=== PATIENT | female | born 1985 | race Caucasian/White ===

== ENCOUNTER 2024-02-04 09:40 | Emergency (ER) | payer BC, SELFPAY ==
[2024-02-04 09:45] VITALS: BP 104/71
--- NOTE | 2024-02-04 11:05 | ED.GENMED ---
History of Present Illness
General
Chief Complaint: Abdominal Symptoms
Source: patient
Exam Limitations: none
Time Seen by Provider: 02/04/24 10:48
History of Present Illness
History of Present Illness:
38-year-old female presents with 2 to 3 days worth of nausea vomiting epigastric discomfort. This was preceded by a course of pneumonia which was also preceded by the flu. She had Tamiflu initially then found to have walking pneumonia and was
prescribed azithromycin. She denies any constant abdominal discomfort but does note upper abdominal pain prior to her vomiting. She denies any blood in the stool. No diarrhea. No fever currently. She is healthy otherwise and does not take any
medications regularly
Phy Exam
Physical Exam
Physical Exam:
General: Well-appearing female no acute respiratory distress
HEENT: Normocephalic atraumatic
Heart: Regular rate and rhythm no murmurs
Lungs: Clear no wheeze
Abdomen: Soft mildly tender in epigastric region no guarding rebound normal bowel sounds nondistended
Extremities: No cyanosis
Skin: Warm no rash
Course
Orders/Labs/Results
Orders:
Orders
02/04/24 11:03
0.9% Sodium Chloride 1000 ml [Nss] 1,000 ml IV BOLUS
Famotidine [Pepcid] 20 mg IV NOW STA
Ondansetron HCl [Zofran] 4 mg PO NOW STA
Test Result ONCE
CR Chest - 2 Views Urgent
Comment:
Reason For Exam: cough
02/04/24 11:30
Complete Blood Count/With Diff Urgent
Comprehensive Metabolic Panel Urgent
HCG, Serum Qualitative Screen Urgent
Lipase Urgent
02/04/24 11:36
Ondansetron Injectable [Zofran] 4 mg IV NOW STA
02/04/24 13:48
Vital Signs- Treatment ONCE
Frequency: Once
Abnormal Lab Results
02/04/24
11:30
WBC 12.1 H 10^3/uL
(4.8-10.8)
RBC 3.80 L 10^6/uL
(4.20-5.40)
Hgb 11.3 L g/dL
(12.0-16.0)
Hct 34.2 L %
(37.0-47.0)
Abs Immat Gran (auto) 0.3 H 10^3/uL
(0-0.05)
Absolute Neuts (auto) 9.2 H 10^3/uL
(1.4-6.5)
Absolute Monos (auto) 0.9 H 10^3/uL
(0.1-0.6)
Immature Gran % 2.2 H %
(0-0.5)
Neutrophils % 76.4 H %
(42.2-75.2)
Lymphocytes % 12.8 L %
(20.5-51.1)
Chloride 97 L mmol/L
(98-107)
ALT 43 H U/L
(0-35)
Alkaline Phosphatase 28 L U/L
(38-126)
02/04/24 11:30
02/04/24 11:30
Vital Signs
Initial and Last Documented VS:
Initial Vital Signs
Temp Pulse Resp BP Pulse Ox
98.0 F 120 18 104/71 96
02/04/24 09:45 02/04/24 09:45 02/04/24 09:45 02/04/24 09:45 02/04/24 09:45
Last Documented Vital Signs
Temp Pulse Resp BP Pulse Ox
98.0 F 90 16 104/62 98
02/04/24 09:45 02/04/24 13:55 02/04/24 13:55 02/04/24 14:00 02/04/24 13:55
MDM/Problems Addressed
Differential Diagnosis Includes:
Patient with vomiting. Abdomen exam fairly benign. Will check labs, hydrate and treat with zofran.
was diagnosed recently with Giardia however patient does not have any diarrhea.
*Critical Care Note
Total Time (30-74mins, 75-104mins- exclusive of procedures): Not Applicable
Update Note
Update Note:
X-ray does demonstrate right upper lobe pneumonia. Patient is not hypoxic. She is not tachycardic after fluids. Her nausea is improved she is not tolerating oral fluids. Overall no respiratory distress and is stable. Admission not indicated at
this point will discharge home with Zofran and cefdinir. She just completed a 5-day course of Zithromax. Return precautions were given
ED Attending Note
-
Portions of this chart may have been created with voice recognition software.� Occasional wrong word or��sound alike� substitutions may have occurred due to the inherent limitations of voice recognition software.
Discharge Plan
Departure
Patient Disposition: Home (Routine Discharge)
Date of Disposition: 02/04/24
Time of Disposition: 14:42
Patient with high blood pressure during this ER visit?: No
Discharge Problem:
Pneumonia
Instructions: Dehydration, Adult (DC), Pneumonia
Prescriptions:
New
ondansetron 4 mg tablet,disintegrating
4 mg PO TID PRN (Reason: nausea and vomiting) Qty: 10 0RF
cefdinir 300 mg capsule
300 mg PO BID Qty: 14 0RF
Referrals:
UNKNOWN - PT DOES,NOT KNOW [Family Provider] -
Activity Restrictions/Additional Instructions:
Drink plenty fluids. Use Zofran if needed for nausea. Take antibiotic as directed. Return if worse otherwise follow-up with family doctor
Interventions
Interventions:
*Risk Screen - Suicide Last Done: 02/04/24 09:48
*General Assessment Last Done: 02/04/24 09:48
*Neglect/Abuse Screening Last Done: 02/04/24 09:48
*ED COVID-19 Vaccine History Last Done: 02/04/24 11:31
LQ-Nxpegp-Qluvkddnls Assessment Last Done: 02/04/24 11:51
Discharge Date and Time
Print Language: ARMENIAN
[2024-02-04 11:28] VITALS: BP 105/64
[2024-02-04] MEDS: NSS 1000 IV (11:35)
[2024-02-04] MEDS: PEPCID 20 MG IV (11:38)
[2024-02-04] MEDS: ZOFRAN 4 MG IV (11:38)
[2024-02-04 11:54] LABS: % Basophils 0.5 % (0-2); % Eosinophils 0.5 % (0-6); % Immature Granulocytes 2.2 % (0-0.5); % Lymphocytes 12.8 % (20.5-51.1); % Monocytes 7.6 % (1.7-9.3); % Neutrophils 76.4 % (42.2-75.2); Absolute Basophils 0.1 10^3/uL (0-0.2); Absolute Eosinophils 0.1 10^3/uL (0-0.7); Absolute Immature Granulocytes 0.3 10^3/uL (0-0.05); Absolute Lymphocytes 1.6 10^3/uL (1.2-3.4); Absolute Monocytes 0.9 10^3/uL (0.1-0.6); Absolute Neutrophils 9.2 10^3/uL (1.4-6.5); Hematocrit 34.2 % (37.0-47.0); Hemoglobin 11.3 g/dL (12.0-16.0); Mean Corpuscular Hgb 29.7 pg (27.0-31.0); Mean Platelet Volume 9.4 fL (7.4-10.4); Nucleated Red Blood Cells % 0 %; Platelet Count 383 10^3/uL (130-400); Red Cell Dist. Width 12.8 % (11.5-14.5); White Blood Cell Count 12.1 10^3/uL (4.8-10.8)
[2024-02-04 12:00] VITALS: BP 106/67
[2024-02-04 12:05] LABS: ALT (SGPT) 43 U/L (0-35); AST (SGOT) 19 U/L (14-36); Albumin 3.8 g/dl (3.5-5.0); Alkaline Phosphatase 28 U/L (38-126); Blood Urea Nitrogen 17 mg/dl (7-17); Calcium 9.1 mg/dl (8.4-10.2); Carbon Dioxide 30 mmol/L (22-30); Chloride 97 mmol/L (98-107); Glucose 94 mg/dl (70-99); Lipase 66 U/L (23-300); Potassium 4.7 mmol/L (3.5-5.1); Sodium 137 mmol/L (135-145); Total Bilirubin 0.8 mg/dl (0.2-1.3); Total Protein 6.5 g/dl (6.3-8.2); eGFR > 60.00
[2024-02-04 12:09] LABS: HCG, Serum Qualitative Screen Negative
[2024-02-04 13:00] VITALS: BP 113/63
[2024-02-04 13:55] VITALS: BP 113/63
[2024-02-04 14:00] VITALS: BP 104/62
== END 2024-02-04 15:06 | disposition home or self-care (01) ==
LOC: EMR 09:40
PROVIDERS: Physician Assistant; EMERGENCY PHYSICIAN Emergency Medicine
DX: J18.9 Pneumonia, unspecified organism (principal); R11.2 Nausea with vomiting, unspecified; R10.13 Epigastric pain
CPT/HCPCS: 99284; 96374; 96375; 96361; 71046; 80053; 83690; 84703; 85025

== ENCOUNTER 2024-03-04 09:17 | Emergency (ER) | payer BC, SELFPAY ==
[2024-03-04 09:29] VITALS: BP 134/68
--- NOTE | 2024-03-04 09:39 | ED.GENMED ---
History of Present Illness
General
Chief Complaint: Pneumonia Symptoms
Source: patient
Exam Limitations: none
Time Seen by Provider: 03/04/24 09:37
Nursing documentation reviewed up to this point in time: agreed with
History of Present Illness
History of Present Illness:
Patient is a 38-year-old female who presents to the ER complaining of intermittent nausea and vomiting since the end of January. Patient was seen here in February 03 diagnosed with pneumonia. She reports she has had intermittent nausea vomiting
since. In between the nausea vomiting she has a lot of reflux. It is worse with pizza and spicy foods. She denies any associated diarrhea. She has been taking Pepto-Bismol and Tums. She recent was constipated but moved her bowels. She denies
any upper respiratory symptoms including cough fever chills. She does feel some epigastric discomfort. She does not have a family doctor however does have a GI specialist that she can see as outpt .
Review of Systems
Review of Systems
Allergies reviewed?: Yes
All Other Systems: ROS reviewed and negative except as documented in HPI and ROS
Constitutional: Reports no symptoms; Denies fever
Respiratory: Reports no symptoms
Cardiac: Reports no symptoms
ABD/GI: Reports abdominal pain (upper abd pain with n/v ; 'heartburn' ) and vomiting
: Reports no symptoms
Musculoskeletal: Reports no symptoms
Skin: Reports no symptoms
Neurological: Reports no symptoms
Psychiatric: Reports no symptoms
Phy Exam
General Physical Exam
General Presentation: no apparent distress
General age: appears stated age
General Skin: warm and dry
General Habitus: normal
General Mental: alert
General Hydration: appears well hydrated
Cardiovascular Exam
Cardiovascular Exam: regular rate/rhythm, no murmur and normal peripheral pulses
Pulmonary Exam
Pulmonary Exam: lungs clear and no respiratory distress
Gastrointestinal Exam
Gastrointestinal Exam: normal bowel sounds, non tender and soft
Neurological Exam
Neurological Exam: alert and oriented x3
Musculoskeletal Exam
Musculoskeletal Exam: full ROM
Skin Exam
Skin Exam: normal color and warm/dry
Psychiatric Exam
Psychiatric Exam: normal mood/affect
Course
Orders/Labs/Results
Orders:
Orders
03/04/24 09:32
Electrocardiogram (*1) Urgent
Reason for Study: Chest Pain
EKG- Treatment ONCE
03/04/24 09:48
Famotidine [Pepcid] 20 mg IV NOW STA
Ondansetron Injectable [Zofran] 4 mg IV NOW STA
03/04/24 09:49
Test Result ONCE
03/04/24 10:01
Complete Blood Count/With Diff Urgent
Comprehensive Metabolic Panel Urgent
HCG, Serum Qualitative Screen Urgent
Lipase Urgent
03/04/24 10:45
Add On- LAB Urgent
Tests Added?: serum qualitative HCG
Abnormal Lab Results
03/04/24
10:01
RBC 4.10 L 10^6/uL
(4.20-5.40)
Hgb 11.3 L g/dL
(12.0-16.0)
Hct 35.5 L %
(37.0-47.0)
MCHC 31.8 L g/dL
(33.0-37.0)
MPV 11.2 H fL
(7.4-10.4)
Absolute Monos (auto) 0.8 H 10^3/uL
(0.1-0.6)
Monocytes % 11.6 H %
(1.7-9.3)
Glucose 102 H mg/dl
(70-99)
Calcium 11.6 H mg/dl
(8.4-10.2)
Alkaline Phosphatase 23 L U/L
(38-126)
03/04/24 10:01
03/04/24 10:01
Vital Signs
Initial and Last Documented VS:
Initial Vital Signs
Temp Pulse Resp BP Pulse Ox
98.0 F 94 16 134/68 100
03/04/24 09:29 03/04/24 09:29 03/04/24 09:29 03/04/24 09:29 03/04/24 09:29
Last Documented Vital Signs
Temp Pulse Resp BP Pulse Ox
98.0 F 76 14 98/66 97
03/04/24 09:29 03/04/24 12:15 03/04/24 12:15 03/04/24 12:00 03/04/24 12:15
MDM/Problems Addressed
MDM/Problems Addressed:
Symptoms are consistent with GERD, reflux. Patient no acute distress complains of heartburn and epigastric discomfort with spicy foods. Has had nausea vomiting associate with this. Patient no acute distress denies any fevers afebrile normal
white count stable hemoglobin, normal chemistries normal LFTs.
Patient was given fluids here along with Pepcid and Zofran IV feeling better stable for discharge home with outpatient follow-up with GI. Patient does have a GI specialist so she is always telemedicine. Will follow-up with her GI specialist given
PPI for discharge
*Critical Care Note
Total Time (30-74mins, 75-104mins- exclusive of procedures): Not Applicable
ED Attending Note
-
Portions of this chart may have been created with voice recognition software.� Occasional wrong word or��sound alike� substitutions may have occurred due to the inherent limitations of voice recognition software.
Discharge Plan
Departure
Patient Disposition: Home (Routine Discharge)
Date of Disposition: 03/04/24
Time of Disposition: 12:12
Patient with high blood pressure during this ER visit?: Yes
Condition: Fair
Covid-19: Not Applicable
Discharge Problem:
gerd
Instructions: Acid reflux and GERD in adults, BLOOD PRESSURE
Prescriptions:
New
pantoprazole [Protonix] 40 mg tablet,delayed release (DR/EC)
40 mg PO DAILY Qty: 14 0RF
ondansetron 4 mg tablet,disintegrating
4 mg PO Q8H PRN (Reason: nausea and vomiting) Qty: 10 0RF
No Action
ondansetron 4 mg tablet,disintegrating
4 mg PO TID PRN (Reason: nausea and vomiting) Qty: 10 0RF
cefdinir 300 mg capsule
300 mg PO BID Qty: 14 0RF
Referrals:
NONE,* [Family Provider] -
Activity Restrictions/Additional Instructions:
As discussed avoid spicy acidic foods, alcohol chocolate caffeine. [place] diet.
start Protonix once daily for the next 2 weeks(sent to pharmacy ) A prescription for nausea medicine, Zofran was sent to your pharmacy take only as directed. Follow-up with your GI specialist for further evaluation.
Return to the ER for any worsening of symptoms
Interventions
Interventions:
*Risk Screen - Suicide Last Done: 03/04/24 09:29
*General Assessment Last Done: 03/04/24 09:29
*Neglect/Abuse Screening Last Done: 03/04/24 09:29
ED- Fall Risk Assessment Last Done: 03/04/24 10:41
*ED COVID-19 Vaccine History Last Done: 03/04/24 09:29
*Nursing Disposition Last Done: 03/04/24 12:58
ED- Cardiac Assessment Last Done: 03/04/24 10:41
ED- Pulmonary Assessment Last Done: 03/04/24 10:41
Discharge Date and Time
Discharge Date/Time: 03/04/24 12:58
Print Language: BARBADIAN
[2024-03-04 10:11] LABS: % Basophils 0.6 % (0-2); % Eosinophils 2.7 % (0-6); % Immature Granulocytes 0.4 % (0-0.5); % Lymphocytes 20.9 % (20.5-51.1); % Monocytes 11.6 % (1.7-9.3); % Neutrophils 63.8 % (42.2-75.2); Absolute Eosinophils 0.2 10^3/uL (0-0.7); Absolute Lymphocytes 1.5 10^3/uL (1.2-3.4); Absolute Monocytes 0.8 10^3/uL (0.1-0.6); Absolute Neutrophils 4.5 10^3/uL (1.4-6.5); Hematocrit 35.5 % (37.0-47.0); Hemoglobin 11.3 g/dL (12.0-16.0); Mean Corp Hgb Conc. 31.8 g/dL (33.0-37.0); Mean Corpuscular Hgb 27.6 pg (27.0-31.0); Mean Corpuscular Volume 86.6 fL (81.0-99.0); Mean Platelet Volume 11.2 fL (7.4-10.4); Nucleated Red Blood Cells % 0 %; Platelet Count 196 10^3/uL (130-400)
[2024-03-04] MEDS: ZOFRAN 4 MG IV (10:13)
[2024-03-04] MEDS: PEPCID 20 MG IV (10:13)
[2024-03-04 10:32] LABS: ALT (SGPT) 18 U/L (0-35); AST (SGOT) 19 U/L (14-36); Albumin 3.9 g/dl (3.5-5.0); Alkaline Phosphatase 23 U/L (38-126); Blood Urea Nitrogen 7 mg/dl (7-17); Calcium 11.6 mg/dl (8.4-10.2); Carbon Dioxide 30 mmol/L (22-30); Chloride 100 mmol/L (98-107); Glucose 102 mg/dl (70-99); Lipase 72 U/L (23-300); Potassium 3.9 mmol/L (3.5-5.1); Sodium 138 mmol/L (135-145); Total Bilirubin 0.5 mg/dl (0.2-1.3); Total Protein 6.3 g/dl (6.3-8.2); eGFR > 60.00
[2024-03-04 11:00] VITALS: BP 99/65
[2024-03-04 11:23] LABS: HCG, Serum Qualitative Screen Negative
[2024-03-04 12:00] VITALS: BP 98/66
== END 2024-03-04 12:58 | disposition home or self-care (01) ==
LOC: EMR 09:17
PROVIDERS: Nurse Practitioner; EMERGENCY PHYSICIAN Student in an Organized Health Care Education/Training Program
DX: K21.9 Gastro-esophageal reflux disease without esophagitis (principal); R11.2 Nausea with vomiting, unspecified
CPT/HCPCS: 99283; 96374; 96375; 80053; 83690; 84703; 85025; 93005